=== PATIENT | male | born 1945 | race Caucasian/White ===

== ENCOUNTER 2018-12-02 13:32 | Emergency (ER) | payer MEDICARE, OTHER ==
[2018-12-02] MEDS: LIDOCAINE 1% (MDV) 20 ML INJ SC (17:03)
== END 2018-12-02 18:43 | disposition home or self-care (01) ==
LOC: E/R 13:32
DX: R22.41 Localized swelling, mass and lump, right lower limb (principal)
CPT/HCPCS: 10060; 73700; 99284-25

== ENCOUNTER 2019-01-06 20:10 | Inpatient (IN) | payer MEDICARE, OTHER ==
[2019-01-06 21:40] LABS: ADD MAN DIFF? NO
[2019-01-06 21:46] LABS: BASOPHILS % 0.6 % (0.0-2.0); EOSINOPHILS # 0.1 10^3/ul (0.0-0.5); EOSINOPHILS % 0.7 % (0.0-7.0); HEMOGLOBIN 11.1 g/dl (14.0-18.0); LYMPHOCYTES # 0.9 10^3/ul (0.8-2.9); LYMPHOCYTES % 13.8 % (15.0-51.0); MEAN CORPUSCULAR HEMOGLOBIN 31.2 pg (29.0-33.0); MEAN CORPUSCULAR HGB CONC 32.6 g/dl (32.0-37.0); MEAN CORPUSCULAR VOLUME 95.5 fl (82.0-101.0); MEAN PLATELET VOLUME 10.9 fl (7.4-10.4); MONOCYTE # 0.5 10^3/ul (0.3-0.9); MONOCYTES % 7.1 % (0.0-11.0); NEUTROPHIL # 5.2 10^3/ul (1.6-7.5); NEUTROPHILS % 77.4 % (39.0-77.0); PLATELET COUNT 196 10^3/UL (140-415); RED BLOOD COUNT 3.56 10^6/ul (4.70-6.10); RED CELL DISTRIBUTION WIDTH 13.7 % (11.5-14.5)
[2019-01-06 21:46] LABS: WHITE BLOOD COUNT 6.8 10^3/ul (4.8-10.8)
[2019-01-06 22:03] LABS: ALANINE AMINOTRANSFERASE 21 IU/L (13-69); ALBUMIN 3.9 g/dl (3.3-4.9); ALBUMIN/GLOBULIN RATIO 1.08; ALKALINE PHOSPHATASE 226 IU/L (42-121); ANION GAP 11 (5-13); ASPARTATE AMINO TRANSFERASE 25 IU/L (15-46); BILIRUBIN,INDIRECT 0.4 mg/dl (0-1.1); BILIRUBIN,TOTAL 0.4 mg/dl (0.2-1.3); BLOOD UREA NITROGEN 66 mg/dl (7-20); CARBON DIOXIDE 34 mmol/L (21-31); CHLORIDE 91 mmol/L (97-110); CREATININE 7.55 mg/dl (0.61-1.24); GLUCOSE 95 mg/dl (70-220); POTASSIUM 5.1 mmol/L (3.5-5.1); SODIUM 136 mmol/L (135-144); TOTAL PROTEIN 7.5 g/dl (6.1-8.1)
[2019-01-06 22:06] LABS: INR 0.88; PT RATIO 0.9
[2019-01-06 22:07] LABS: PARTIAL THROMBOPLASTIN TIME 34.4 Sec (23.0-35.0)
[2019-01-06 22:14] LABS: TROPONIN-I 0.018 ng/ml (0.000-0.120)
[2019-01-07 00:31] LABS: LACTIC ACID < 0.5 mmol/L (0.5-2.0)
[2019-01-07] MEDS ORDERED: MECLIZINE 25 MG TAB PO (01:00)
[2019-01-07] MEDS ORDERED: ALBUTEROL/IPRATROPIUM (NEB) 3 ML AMP HHN (01:00)
[2019-01-07] MEDS ORDERED: ACETAMINOPHEN 325 MG TAB PO (01:00)
[2019-01-07] MEDS ORDERED: NACL 0.9% 3 ML SYG IV (01:00)
[2019-01-07] MEDS ORDERED: ONDANSETRON 4 MG INJ IV (01:00)
[2019-01-07] MEDS ORDERED: HYDROCODONE/APAP (5/325) TAB PO (01:00)
[2019-01-07 03:05] LABS: LACTIC ACID 0.6 mmol/L (0.5-2.0)
[2019-01-07 05:50] LABS: ADD MAN DIFF? NO
[2019-01-07 05:58] LABS: BASOPHILS % 0.9 % (0.0-2.0); EOSINOPHILS # 0.1 10^3/ul (0.0-0.5); EOSINOPHILS % 1.6 % (0.0-7.0); HEMATOCRIT 28.4 % (42.0-52.0); HEMOGLOBIN 9.5 g/dl (14.0-18.0); LYMPHOCYTES # 0.9 10^3/ul (0.8-2.9); LYMPHOCYTES % 20.3 % (15.0-51.0); MEAN CORPUSCULAR HEMOGLOBIN 32.1 pg (29.0-33.0); MEAN CORPUSCULAR HGB CONC 33.5 g/dl (32.0-37.0); MEAN CORPUSCULAR VOLUME 95.9 fl (82.0-101.0); MEAN PLATELET VOLUME 11.2 fl (7.4-10.4); MONOCYTE # 0.4 10^3/ul (0.3-0.9); MONOCYTES % 9.3 % (0.0-11.0); NEUTROPHIL # 2.9 10^3/ul (1.6-7.5); NEUTROPHILS % 67.7 % (39.0-77.0); PLATELET COUNT 167 10^3/UL (140-415); RED BLOOD COUNT 2.96 10^6/ul (4.70-6.10); RED CELL DISTRIBUTION WIDTH 13.7 % (11.5-14.5)
[2019-01-07 05:58] LABS: WHITE BLOOD COUNT 4.3 10^3/ul (4.8-10.8)
[2019-01-07 06:20] LABS: ALANINE AMINOTRANSFERASE 17 IU/L (13-69); ALBUMIN 3.2 g/dl (3.3-4.9); ALKALINE PHOSPHATASE 154 IU/L (42-121); ANION GAP 10 (5-13); ASPARTATE AMINO TRANSFERASE 19 IU/L (15-46); BILIRUBIN,INDIRECT 0.2 mg/dl (0-1.1); BILIRUBIN,TOTAL 0.2 mg/dl (0.2-1.3); BLOOD UREA NITROGEN 77 mg/dl (7-20); CALCIUM 8.9 mg/dl (8.4-10.2); CARBON DIOXIDE 34 mmol/L (21-31); CHLORIDE 92 mmol/L (97-110); CHOL/HDL RATIO 2.4 RATIO; CHOLESTEROL 117 mg/dl (100-200); CREATININE 8.29 mg/dl (0.61-1.24); GLUCOSE 72 mg/dl (70-220); HDL CHOLESTEROL 48 mg/dl (31-75); LDL CHOLESTEROL,CALCULATED 48 mg/dl; POTASSIUM 4.8 mmol/L (3.5-5.1); SODIUM 136 mmol/L (135-144); TOTAL PROTEIN 6.1 g/dl (6.1-8.1); TRIGLYCERIDES 106 mg/dl (0-149)
[2019-01-07 06:50] LABS: THYROID STIMULATING HORMONE 0.441 MIU/L (0.465-4.680)
[2019-01-07] MEDS: PANTOPRAZOLE (EC) 40 MG TAB PO (07:16)
[2019-01-07 07:56] LABS: HEMOGLOBIN A1C 4.7 % (0-5.9)
[2019-01-07] MEDS ORDERED: NON-FORMULARY/PATIENT OWN MED (Omeprazole* 20 MG) PO (09:00)
[2019-01-07] MEDS: LEVETIRACETAM 500 MG TAB PO (09:57)
[2019-01-07] MEDS: METOPROLOL (XL) 100 MG TAB PO (09:57)
[2019-01-07] MEDS: LAMOTRIGINE 100 MG TAB PO ×2 (09:58→20:48)
[2019-01-07] MEDS: NIFEdipine (XL) 60 MG TAB PO ×2 (09:58→20:49)
[2019-01-07] MEDS ORDERED: SODIUM CHLORIDE 0.9% 1L BAG IV (19:30)
[2019-01-07] MEDS ORDERED: ALBUMIN HUMAN 25% 100 ML IV (19:30)
[2019-01-07] MEDS: ATORVASTATIN 10 MG TAB PO (20:48)
[2019-01-07] MEDS ORDERED: NON-FORMULARY/PATIENT OWN MED (Simvastatin* (Zocor*) 20 MG) PO (21:00)
[2019-01-08] MEDS: PANTOPRAZOLE (EC) 40 MG TAB PO (06:20)
[2019-01-08 07:14] LABS: ADD MAN DIFF? NO
[2019-01-08 07:18] LABS: BASOPHIL # 0.1 10^3/ul (0.0-0.1); BASOPHILS % 0.9 % (0.0-2.0); EOSINOPHILS # 0.1 10^3/ul (0.0-0.5); EOSINOPHILS % 1.7 % (0.0-7.0); LYMPHOCYTES % 17.6 % (15.0-51.0); MEAN CORPUSCULAR HEMOGLOBIN 31.5 pg (29.0-33.0); MEAN CORPUSCULAR HGB CONC 33.3 g/dl (32.0-37.0); MEAN CORPUSCULAR VOLUME 94.6 fl (82.0-101.0); MEAN PLATELET VOLUME 10.7 fl (7.4-10.4); MONOCYTE # 0.5 10^3/ul (0.3-0.9); MONOCYTES % 8.3 % (0.0-11.0); NEUTROPHIL # 4.1 10^3/ul (1.6-7.5); NEUTROPHILS % 71.2 % (39.0-77.0); PLATELET COUNT 182 10^3/UL (140-415); RED BLOOD COUNT 3.17 10^6/ul (4.70-6.10); RED CELL DISTRIBUTION WIDTH 13.4 % (11.5-14.5)
[2019-01-08 07:18] LABS: WHITE BLOOD COUNT 5.8 10^3/ul (4.8-10.8)
[2019-01-08 07:38] LABS: ANION GAP 14 (5-13); BLOOD UREA NITROGEN 104 mg/dl (7-20); CALCIUM 8.5 mg/dl (8.4-10.2); CARBON DIOXIDE 29 mmol/L (21-31); CHLORIDE 92 mmol/L (97-110); CREATININE 10.02 mg/dl (0.61-1.24); GLUCOSE 93 mg/dl (70-220); MAGNESIUM 2.1 mg/dl (1.7-2.5); PHOSPHORUS 6.1 mg/dl (2.5-4.9); POTASSIUM 5.6 mmol/L (3.5-5.1); SODIUM 135 mmol/L (135-144)
[2019-01-08 07:53] LABS: FREE T4 (FREE THYROXINE) 1.79 ng/dl (0.78-2.44)
[2019-01-08 08:07] LABS: HEPATITIS B SURFACE ANTIGEN NEGATIVE (NEGATIVE)
[2019-01-08 08:09] LABS: TRIIODOTHYRONINE 0.64 ng/ml (0.97-1.69)
[2019-01-08 08:25] LABS: HEPATITIS B SURFACE ANTIBODY POSITIVE (NEGATIVE)
[2019-01-08 08:43] LABS: FOLATE 6.4 ng/ml (2.8-20.0)
[2019-01-08] MEDS: NIFEdipine (XL) 60 MG TAB PO ×3 (09:00→20:02)
[2019-01-08] MEDS: METOPROLOL (XL) 100 MG TAB PO ×2 (09:00→12:04)
[2019-01-08] MEDS: LEVETIRACETAM 500 MG TAB PO ×2 (09:00→12:03)
[2019-01-08] MEDS: LAMOTRIGINE 100 MG TAB PO ×3 (09:00→20:02)
[2019-01-08] MEDS: ATORVASTATIN 10 MG TAB PO (20:02)
[2019-01-08 22:08] LABS: RAPID PLASMA REAGIN NONREACTIVE (NR)
[2019-01-09] MEDS: PANTOPRAZOLE (EC) 40 MG TAB PO (05:49)
[2019-01-09] MEDS: LEVETIRACETAM 500 MG TAB PO (09:01)
[2019-01-09] MEDS: LAMOTRIGINE 100 MG TAB PO ×2 (09:01→21:16)
[2019-01-09] MEDS: METOPROLOL (XL) 100 MG TAB PO (09:02)
[2019-01-09] MEDS: NIFEdipine (XL) 60 MG TAB PO ×2 (09:03→21:15)
[2019-01-09 09:13] LABS: ANION GAP 14 (5-13); BLOOD UREA NITROGEN 61 mg/dl (7-20); CALCIUM 9.2 mg/dl (8.4-10.2); CARBON DIOXIDE 28 mmol/L (21-31); CHLORIDE 97 mmol/L (97-110); CREATININE 7.34 mg/dl (0.61-1.24); GLUCOSE 101 mg/dl (70-220); POTASSIUM 4.8 mmol/L (3.5-5.1); SODIUM 139 mmol/L (135-144)
[2019-01-09] MEDS: CALCIUM ACETATE 667 MG CAP PO ×2 (12:29→17:58)
[2019-01-09] MEDS: ATORVASTATIN 10 MG TAB PO (21:16)
[2019-01-09] MEDS ORDERED: ACETAMINOPHEN 325 MG TAB PO (22:00)
[2019-01-09] MEDS ORDERED: HYDROCODONE/APAP (5/325) TAB PO (22:00)
[2019-01-10] MEDS: PANTOPRAZOLE (EC) 40 MG TAB PO (05:31)
[2019-01-10] MEDS: NIFEdipine (XL) 60 MG TAB PO ×3 (08:05→20:48)
[2019-01-10] MEDS: METOPROLOL (XL) 100 MG TAB PO ×2 (08:06→15:12)
[2019-01-10] MEDS: CALCIUM ACETATE 667 MG CAP PO ×3 (08:16→17:19)
[2019-01-10] MEDS: LAMOTRIGINE 100 MG TAB PO ×2 (08:16→20:49)
[2019-01-10] MEDS: LEVETIRACETAM 500 MG TAB PO (08:16)
[2019-01-10] MEDS: ENOXAPARIN 30 MG/0.3 ML SYG SC (08:22)
[2019-01-10 11:18] LABS: ADD MAN DIFF? NO
[2019-01-10 11:25] LABS: WHITE BLOOD COUNT 5.2 10^3/ul (4.8-10.8)
[2019-01-10 11:25] LABS: BASOPHILS % 0.8 % (0.0-2.0); EOSINOPHILS # 0.1 10^3/ul (0.0-0.5); EOSINOPHILS % 1.7 % (0.0-7.0); HEMATOCRIT 28.8 % (42.0-52.0); HEMOGLOBIN 9.7 g/dl (14.0-18.0); LYMPHOCYTES % 18.7 % (15.0-51.0); MEAN CORPUSCULAR HEMOGLOBIN 31.9 pg (29.0-33.0); MEAN CORPUSCULAR HGB CONC 33.7 g/dl (32.0-37.0); MEAN CORPUSCULAR VOLUME 94.7 fl (82.0-101.0); MEAN PLATELET VOLUME 11.1 fl (7.4-10.4); MONOCYTE # 0.4 10^3/ul (0.3-0.9); MONOCYTES % 7.6 % (0.0-11.0); NEUTROPHIL # 3.7 10^3/ul (1.6-7.5); NEUTROPHILS % 70.8 % (39.0-77.0); PLATELET COUNT 208 10^3/UL (140-415); RED BLOOD COUNT 3.04 10^6/ul (4.70-6.10); RED CELL DISTRIBUTION WIDTH 13.5 % (11.5-14.5)
[2019-01-10 11:40] LABS: ALANINE AMINOTRANSFERASE 21 IU/L (13-69); ALBUMIN 3.7 g/dl (3.3-4.9); ALBUMIN/GLOBULIN RATIO 1.12; ALKALINE PHOSPHATASE 230 IU/L (42-121); ANION GAP 15 (5-13); ASPARTATE AMINO TRANSFERASE 29 IU/L (15-46); BILIRUBIN,INDIRECT 0.1 mg/dl (0-1.1); BILIRUBIN,TOTAL 0.1 mg/dl (0.2-1.3); BLOOD UREA NITROGEN 83 mg/dl (7-20); CALCIUM 9.1 mg/dl (8.4-10.2); CARBON DIOXIDE 24 mmol/L (21-31); CHLORIDE 96 mmol/L (97-110); CREATININE 8.96 mg/dl (0.61-1.24); GLUCOSE 99 mg/dl (70-220); INR 0.97; PARTIAL THROMBOPLASTIN TIME 31.2 Sec (23.0-35.0); SODIUM 135 mmol/L (135-144)
[2019-01-10 11:48] LABS: POTASSIUM 5.7 mmol/L (3.5-5.1)
[2019-01-10 11:52] LABS: MAGNESIUM 2.1 mg/dl (1.7-2.5)
[2019-01-10] MEDS: hydrALAzine 20 MG INJ IV (16:00)
[2019-01-10] MEDS ORDERED: hydrALAzine 20 MG INJ IV ×2 (17:00→19:30)
[2019-01-10] MEDS: ATORVASTATIN 10 MG TAB PO (20:48)
[2019-01-11] MEDS: PANTOPRAZOLE (EC) 40 MG TAB PO (05:48)
[2019-01-11] MEDS: CALCIUM ACETATE 667 MG CAP PO ×2 (08:18→12:03)
[2019-01-11] MEDS: LEVETIRACETAM 500 MG TAB PO (08:37)
[2019-01-11] MEDS: NIFEdipine (XL) 60 MG TAB PO (08:37)
[2019-01-11] MEDS: LAMOTRIGINE 100 MG TAB PO (08:37)
[2019-01-11] MEDS: METOPROLOL (XL) 100 MG TAB PO (08:38)
[2019-01-11] MEDS: ENOXAPARIN 30 MG/0.3 ML SYG SC (08:39)
[2019-01-11] MEDS ORDERED: LOSARTAN 50 MG TAB PO (21:00)
== END 2019-01-11 13:15 | disposition home health service (06) | DRG 70 ==
LOC: TEL 23:04 → E/R 20:10 → PP2 01-09 22:15
PROVIDERS: Internal Medicine
DX: G93.40 Encephalopathy, unspecified (principal); N18.6 End stage renal disease; I12.0 Hypertensive chronic kidney disease with stage 5 chronic kidney disease or end stage renal disease; J90 Pleural effusion, not elsewhere classified; Z99.2 Dependence on renal dialysis; D63.1 Anemia in chronic kidney disease; S09.90XA Unspecified injury of head, initial encounter; W19.XXXA Unspecified fall, initial encounter; E11.9 Type 2 diabetes mellitus without complications; Z91.81 History of falling; E05.80 Other thyrotoxicosis without thyrotoxic crisis or storm; M48.02 Spinal stenosis, cervical region; G93.89 Other specified disorders of brain; Z86.73 Personal history of transient ischemic attack (TIA), and cerebral infarction without residual deficits; E87.5 Hyperkalemia
CPT/HCPCS: 70450; 70551; 71045; 72125; 80048; 80053; 80061; 82607; 82746; 82962; 83036; 83605; 83735; 84100; 84439; 84443; 84480; 84484; 85025; 85610; 85730; 86592; 86706; 87040-91; 87340; 90935; 92610; 93005; 97116; 97162; 97530; 99285-25; G0378